=== PATIENT | female | born 1985 | race Caucasian/White ===

== ENCOUNTER 2018-10-26 00:38 | Emergency (ER) | payer BC ==
[~2018-10-26 00:38] MED LIST: ATIVAN 0.50.5 MG/TAB PO; LAMICTAL150 MG PO
[2018-10-26 00:42] VITALS: TEMP 96.9
[2018-10-26] MEDS ORDERED: XANAX 0.5MG0.5 MG PO (00:48)
[2018-10-26 03:02] VITALS: BP 111/752; PULSE 78
== END 2018-10-26 03:02 | disposition home or self-care (01) ==
LOC: COL.ER 00:38
PROVIDERS: Emergency Medicine
DX: F10.129 Alcohol abuse with intoxication, unspecified (principal); G40.909 Epilepsy, unspecified, not intractable, without status epilepticus; Z88.0 Allergy status to penicillin; Z88.2 Allergy status to sulfonamides; Z88.8 Allergy status to other drugs, medicaments and biological substances
CPT/HCPCS: J2405